=== PATIENT | male | born 1985 | race Two or more races ===

== ENCOUNTER 2022-05-27 13:57 | Emergency (ER) | payer SELFPAY ==
[~2022-05-27] VITALS: Ht 165.1 cm; Wt 106.6 kg
--- NOTE | 2022-05-27 14:18 | NUR ---
SPEECH AND HEARING DIRECTOR AT BEDSIDE FOR XRAY
[2022-05-27] MEDS ORDERED: NALOXONE HCL 0.4 MG/ML AMPUL IV ONE (14:30)
[2022-05-27] MEDS ORDERED: NALOXONE PREFILLED SYRINGE 2 MG/2 ML SYRINGE ONE (14:47)
--- NOTE | 2022-05-27 15:04 | NUR ---
HOISTER AT BEDSIDE FOR BLOOD DRAW
--- NOTE | 2022-05-27 15:05 | NUR ---
URINE COLLECTED AND SENT TO LAB
[2022-05-27 15:45] LABS: BASOPHILS # (AUTO) 0.1 K/uL (0.0-0.2); BASOPHILS % (AUTO) 0.8 % (0.0-2.0); EOSINOPHILS % (AUTO) 0.3 % (0.0-6.0); HEMATOCRIT 41 % (39-51); HEMOGLOBIN 13.1 g/dL (13.5-17.5); LYMPHOCYTES # (AUTO) 2.5 K/uL (0.8-4.8); LYMPHOCYTES % (AUTO) 37.1 % (20.0-44.0); MEAN CORPUSCULAR HGB CONC 32 g/dl (31.0-36.0); MEAN CORPUSCULAR VOLUME 81 fL (80-96); MONOCYTES # (AUTO) 0.6 K/uL (0.1-1.30); MONOCYTES % (AUTO) 9.3 % (2.0-12.0); NEUTROPHILS # (AUTO) 3.5 K/uL (1.8-8.9); NEUTROPHILS % (AUTO) 52.5 % (43.0-81.0); PLATELET COUNT (AUTO) 248 K/uL (150-450); RED BLOOD CELL COUNT(AUTO) 5.06 MIL/uL (4.5-6.0); WHITE BLOOD COUNT (AUTO) 6.6 K/uL (4.3-11.0)
[2022-05-27 15:54] LABS: CALCIUM, SERUM 8.5 mg/dL (8.5-10.1); CARBON DIOXIDE 32 mmol/L (21-32); CHLORIDE 105 mmol/L (98-107); CREATININE 0.8 mg/dL (0.6-1.3); GLUCOSE 109 mg/dL (74-106); POTASSIUM 3.7 mmol/L (3.5-5.1); SODIUM SERUM 144 mmol/L (136-145); UREA NITROGEN, BLOOD 11 mg/dL (7-18)
[2022-05-27 16:01] LABS: ALANINE AMINOTRANSFERASE 56 U/L (12-78); ALBUMIN 3.7 g/dL (3.4-5.0); ALCOHOL, BLOOD 456 mg/dL (0-0); ALKALINE PHOSPHATASE 159 U/L (46-116); ASPARTATE AMINOTRANSFERASE 40 U/L (15-37); BILIRUBIN,DIRECT 0.1 mg/dL (0.0-0.2); BILIRUBIN,TOTAL 0.3 mg/dL (0.2-1.0); TOTAL PROTEIN, SERUM 7.8 g/dL (6.4-8.2)
[2022-05-27 16:02] LABS: ACETAMINOPHEN 0 ug/ml (10-30)
[2022-05-27 16:10] LABS: BILIRUBIN,URINE NEGATIVE (NEGATIVE); COLOR,URINE YELLOW (YELLOW); LEUKOCYTE ESTERASE ,URINE NEGATIVE (NEGATIVE); NITRITE, URINE NEGATIVE (NEGATIVE); PROTEIN,URINE NEGATIVE (NEGATIVE); UGLUCOSE NEGATIVE (NEGATIVE); UROBILINOGEN,URINE 0.2 EU/dL (0.2)
[2022-05-27 16:18] LABS: BACTERIA,URINE None seen /HPF (None Seen); WBC,URINE 0-2 /HPF (0-3)
[2022-05-27 16:19] LABS: MUCUS,URINE Few /LPF (None Seen)
--- NOTE | 2022-05-27 21:06 | NUR ---
PT IS A, OX4. AMBULATORY TO THE BATHROOM WITH STEEADY GAITS. PO INTAKE TOLERATE WELL. NO N/V. REPORTED FEELING WELL AND WILLING TO LEAVE. MADE AWARE.
[2022-05-27] MEDS ORDERED: NALO4SPR BNOSTRILS (21:10)
[2022-05-27 21:28] VITALS: BP 137/77
--- NOTE | 2022-05-27 21:28 | NUR ---
patient is medically stable for D/C per MD. Patient discharged to home in stable condition. Written and verbal after care instructions given. Patient verbalizes understanding of instruction.
== END 2022-05-27 21:33 | disposition home or self-care (01) ==
LOC: ER 14:00 → EDBD 14:00 → ER 21:33
DX: S22.49XA Multiple fractures of ribs, unspecified side, initial encounter for closed fracture (principal); G93.40 Encephalopathy, unspecified; F10.129 Alcohol abuse with intoxication, unspecified; R41.82 Altered mental status, unspecified; R94.31 Abnormal electrocardiogram [ECG] [EKG]; X58.XXXA Exposure to other specified factors, initial encounter; Y93.89 Activity, other specified; Y92.89 Other specified places as the place of occurrence of the external cause; Y99.8 Other external cause status; Y90.8 Blood alcohol level of 240 mg/100 ml or more
CPT/HCPCS: 99285; 96374; 93005; 71045; 70450; 85025; 80048; 80076; 81001; 36415; 84484; 80143; 80320; 80307; J2310; G0480